=== PATIENT | female | born 1985 | race Caucasian/White ===

== ENCOUNTER → 2017-11-05 | Outpatient (REF) | payer OTHER ==
[2017-11-05 18:00] LABS: HEMATOCRIT 41.6 % (36.0-47.0); HEMOGLOBIN 14.5 g/dl (12.0-16.0); MEAN CORPUSCULAR HEMOGLOBIN 30.9 pg (27.0-33.0); MEAN CORPUSCULAR HGB CONC 34.9 g/dl (32.0-36.5); MEAN CORPUSCULAR VOLUME 88.5 fl (80.0-96.0); PLATELET COUNT, AUTOMATED 259 10^3/uL (150-450); RED CELL DISTRIBUTION WIDTH 13.5 % (11.5-14.5); WHITE BLOOD COUNT 6.2 10^3/uL (4.0-10.0)
[2017-11-05 18:24] LABS: HCG, SERUM QUANTITATIVE 73845 MIU/ML
[2017-11-06 10:44] LABS: RUBELLA IgG QUALITATIVE IMMUNE (IMMUNE)
[2017-11-06 11:02] LABS: HBsAg Prenatal NEGATIVE (NEGATIVE)
[2017-11-06 11:13] LABS: HEPATITIS C VIRUS ABY INDEX < 0.0 INDEX (<0.8)
[2017-11-06 11:27] LABS: HIV 1&2 SCREEN CENTAUR NEGATIVE (NEGATIVE)
== END ==
LOC: M LAB REF 17:04
DX: O36.80X0 Pregnancy with inconclusive fetal viability, not applicable or unspecified (principal)

== ENCOUNTER → 2018-04-28 | Outpatient (CLI) | payer OTHER ==
[2018-04-28 17:02] LABS: HEMATOCRIT 33.4 % (36.0-47.0); HEMOGLOBIN 11.5 g/dl (12.0-15.5); MEAN CORPUSCULAR HEMOGLOBIN 31.9 pg (27.0-33.0); MEAN CORPUSCULAR HGB CONC 34.4 g/dl (32.0-36.5); MEAN CORPUSCULAR VOLUME 92.8 fl (80.0-96.0); PLATELET COUNT, AUTOMATED 331 10^3/uL (150-450); RED CELL DISTRIBUTION WIDTH 13.2 % (11.5-14.5); WHITE BLOOD COUNT 11.2 10^3/uL (4.0-10.0)
[2018-04-28 17:36] LABS: GLUCOSE CHALLENGE TEST 1 HOUR 124 MG/DL (LESS THAN 140)
== END ==
LOC: M WUC 11:36
DX: Z34.82 Encounter for supervision of other normal pregnancy, second trimester (principal)
CPT/HCPCS: 82950

== ENCOUNTER → 2018-05-22 | Outpatient (REF) | payer OTHER | LOC: M LAB REF 16:54 | DX: Z34.83 Encounter for supervision of other normal pregnancy, third trimester (principal); Z36.85 Encounter for antenatal screening for Streptococcus B | CPT/HCPCS: 87186 ==

== ENCOUNTER 2018-06-12 13:08 | Inpatient (IN) | payer OTHER ==
[2018-06-12 19:31] LABS: HEMATOCRIT 39.6 % (36.0-47.0); HEMOGLOBIN 13.5 g/dl (12.0-15.5); MEAN CORPUSCULAR HGB CONC 34.1 g/dl (32.0-36.5); PLATELET COUNT, AUTOMATED 294 10^3/uL (150-450); RED BLOOD COUNT 4.35 10^6/uL (4.00-5.40); WHITE BLOOD COUNT 10.1 10^3/uL (4.0-10.0)
[2018-06-12] MEDS: PENICILLIN G POTASSIUM IV 5 MU in D5W MINI-BAG PLUS 100 ML IV (19:41)
[2018-06-12] MEDS ORDERED: OXYTOCIN 30 UNITS IN 0.9% NaCl 500ML IV BAG (J2590) As Ordered (20:18)
[2018-06-12] MEDS: LR 1,000 ML IV (20:28)
[2018-06-12] MEDS: OXYTOCIN DRIP 30 UNITS in APPROPRIATE DILUENT 1 EA IV (20:28)
[2018-06-12] MEDS: PENICILLIN G POTASSIUM IV 2.5 MU in APPROPRIATE DILUENT 1 EA IV (23:38)
[2018-06-13] MEDS: PENICILLIN G POTASSIUM IV 2.5 MU in APPROPRIATE DILUENT 1 EA IV ×2 (03:30→08:15)
[2018-06-13] MEDS: OXYTOCIN DRIP 30 UNITS in APPROPRIATE DILUENT 1 EA IV (09:37)
[2018-06-13] MEDS ORDERED: RHOGAM 300 MCG (1500 IU) INJ (J2790) IM (09:45)
[2018-06-13] MEDS ORDERED: METHYLERGONOVINE MALEATE 0.2 MG TAB PO (09:45)
[2018-06-13] MEDS ORDERED: MEASLES,MUMPS,RUBELLA VACCINE INJ (MMR-II) (90707) SC (09:45)
[2018-06-13] MEDS ORDERED: DOCUSATE SODIUM 100 MG CAP PO (09:45)
[2018-06-13] MEDS ORDERED: DIBUCAINE 1% OINTMENT 30GM TOP (09:45)
[2018-06-13] MEDS ORDERED: ACETAMINOPHEN 500 MG TAB PO (09:45)
[2018-06-13] MEDS: PRENATAL VITAMINS CHEWABLE TABLET PO (13:04)
[2018-06-13] MEDS: IBUPROFEN 800 MG TAB PO (18:18)
[2018-06-14] MEDS: PRENATAL VITAMINS CHEWABLE TABLET PO (10:10)
[2018-06-14] MEDS: INFLUENZA QUADRIVALENT PF VACCINE 0.5ML SYRINGE (90686) IM (10:11)
== END 2018-06-14 14:50 | disposition home or self-care (01) | DRG 560 ==
LOC: M LDO 13:08 → M OBS 06-13 11:00 → M LDI 18:12
PROVIDERS: Advanced Practice Midwife
PROC: 10E0XZZ Delivery of Products of Conception, External Approach (ICD-10-PCS; principal; 2018-06-13)
DX: O69.89X0 Labor and delivery complicated by other cord complications, not applicable or unspecified (principal); F17.200 Nicotine dependence, unspecified, uncomplicated; O99.820 Streptococcus B carrier state complicating pregnancy; Z37.0 Single live birth; Z3A.39 39 weeks gestation of pregnancy; O99.334 Smoking (tobacco) complicating childbirth

== ENCOUNTER → 2019-01-14 | Outpatient (REF) | payer OTHER ==
[~2019-01-14] MED LIST: COLA100C5 PO; IBUP-1114 PO; IBUP80TA PO; MAPA500T17 PO; MAPA500T2 PO; PRENTAB9 PO
[2019-01-14 19:26] LABS: HEMATOCRIT 42.3 % (36.0-47.0); HEMOGLOBIN 14.2 g/dl (12.0-15.5); MEAN CORPUSCULAR HEMOGLOBIN 29.7 pg (27.0-33.0); MEAN CORPUSCULAR HGB CONC 33.6 g/dl (32.0-36.5); MEAN CORPUSCULAR VOLUME 88.5 fl (80.0-96.0); PLATELET COUNT, AUTOMATED 322 10^3/uL (150-450); RED BLOOD COUNT 4.78 10^6/uL (4.00-5.40); WHITE BLOOD COUNT 7.8 10^3/uL (4.0-10.0)
[2019-01-14 20:50] LABS: HCG, SERUM QUANTITATIVE 19204 MIU/ML; HIV 1&2 SCREEN CENTAUR NEGATIVE (NEGATIVE)
[2019-01-16 10:32] LABS: RUBELLA IgG QUALITATIVE IMMUNE (IMMUNE)
[2019-01-16 11:00] LABS: HEPATITIS C VIRUS ABY INDEX < 0.0 INDEX (<0.8)
== END ==
LOC: M LAB REF 16:44
PROVIDERS: ATTEND Obstetrics & Gynecology
DX: Z32.01 Encounter for pregnancy test, result positive (principal); O36.80X0 Pregnancy with inconclusive fetal viability, not applicable or unspecified

== ENCOUNTER → 2019-06-08 | Outpatient (CLI) | payer OTHER ==
[2019-06-08 11:34] LABS: HEMATOCRIT 34.8 % (36.0-47.0); HEMOGLOBIN 12.1 g/dl (12.0-15.5); MEAN CORPUSCULAR HEMOGLOBIN 31.8 pg (27.0-33.0); MEAN CORPUSCULAR HGB CONC 34.8 g/dl (32.0-36.5); MEAN CORPUSCULAR VOLUME 91.6 fl (80.0-96.0); PLATELET COUNT, AUTOMATED 292 10^3/uL (150-450); WHITE BLOOD COUNT 9.3 10^3/uL (4.0-10.0)
== END ==
LOC: M LAB 09:54
PROVIDERS: ATTEND Obstetrics & Gynecology
DX: Z34.82 Encounter for supervision of other normal pregnancy, second trimester (principal); Z3A.00 Weeks of gestation of pregnancy not specified

== ENCOUNTER → 2019-08-19 | Outpatient (REF) | payer OTHER | LOC: M LAB REF 16:26 | PROVIDERS: ATTEND Obstetrics & Gynecology | DX: Z36.85 Encounter for antenatal screening for Streptococcus B (principal) ==

== ENCOUNTER 2019-09-02 20:01 | Inpatient (IN) | payer OTHER ==
[~2019-09-02] VITALS: Ht 157.5 cm; Wt 86.5 kg
[2019-09-02 20:33] VITALS: BP 126/78
[2019-09-02] MEDS ORDERED: LACTATED RINGER'S 1000 ML IV STA (21:28)
[2019-09-02] MEDS ORDERED: LR 1,000 ML IV SCH (21:28)
[2019-09-02 22:12] LABS: HEMATOCRIT 38.8 % (36.0-47.0); HEMOGLOBIN 12.3 g/dl (12.0-15.5); MEAN CORPUSCULAR HEMOGLOBIN 27.1 pg (27.0-33.0); MEAN CORPUSCULAR HGB CONC 31.7 g/dl (32.0-36.5); MEAN CORPUSCULAR VOLUME 85.5 fl (80.0-96.0); PLATELET COUNT, AUTOMATED 297 10^3/uL (150-450); RED BLOOD COUNT 4.54 10^6/uL (4.00-5.40); WHITE BLOOD COUNT 9.9 10^3/uL (4.0-10.0)
[2019-09-03] VITALS (10 sets, daily range): BP systolic 117–163; BP diastolic 65–78
[2019-09-03] MEDS ORDERED: OXYTOCIN 30 UNITS IN 0.9% NaCl 500ML IV BAG (J2590) As Ordered ONE (00:09)
[2019-09-03] MEDS ORDERED: OXYTOCIN DRIP 30 UNITS in IV 1 EA IV SCH ×2 (00:30→00:45)
[2019-09-03] MEDS ORDERED: DIBUCAINE 1% OINTMENT 30GM TOP PRN (00:45)
[2019-09-03] MEDS ORDERED: ACETAMINOPHEN 500 MG TAB PO PRN (00:45)
[2019-09-03] MEDS ORDERED: RHOGAM 300 MCG (1500 IU) INJ (J2790) IM SCH (00:45)
[2019-09-03] MEDS ORDERED: METHYLERGONOVINE MALEATE 0.2 MG TAB PO PRN (00:45)
[2019-09-03] MEDS ORDERED: IBUPROFEN 600 MG TAB PO PRN (00:45)
[2019-09-03] MEDS ORDERED: IBUPROFEN 800 MG TAB PO PRN (00:45)
[2019-09-03] MEDS ORDERED: ACETAMINOPHEN TAB 650MG DOSE (2X325MG) PO PRN (00:45)
[2019-09-03] MEDS ORDERED: MEASLES,MUMPS,RUBELLA VACCINE INJ (MMR-II) (90707) SC SCH (00:45)
[2019-09-03] MEDS ORDERED: DOCUSATE SODIUM 100 MG CAP PO PRN (00:45)
[2019-09-03 01:02] LABS: CORD GAS ABE V -1.3; CORD GAS HCO3 V 23.6 MEQ/L; CORD GAS PCO2 V 40.5 mmHg; CORD GAS PH V 7.384 UNITS; CORD GAS PO2 V 35.5 mmHg; CORD GAS TCO2 V 24.9 MEQ/L
[2019-09-03 01:03] LABS: CORD GAS ABE A -1.2; CORD GAS HCO3 A 26.7 MEQ/L; CORD GAS O2 SAT A 55.3 %; CORD GAS PCO2 A 56.6 mmHg; CORD GAS PH A 7.291 UNITS; CORD GAS PO2 A 23.6 mmHg; CORD GAS SBC A 22.3 MEQ/L; CORD GAS TCO2 A 28.4 MEQ/L
--- NOTE | 2019-09-03 07:48 | HPE ---
DATE OF ADMISSION: 09/02/2019 HISTORY OF PRESENT ILLNESS: Deepali is a 34-year-old female, 5, para 3-0-1-3, with an expected date of confinement (EDC) of 09/01/2019, estimated gestational age (EGA) 40 and 1/7 weeks gestation, who presented to labor and delivery with complaints of contractions every 4-5 minutes. Upon evaluation in labor and delivery, she was found to be in labor. At this point, a decision was made for admission. Her record was reviewed and essentially unremarkable. LABS: Blood type is B positive. Rubella immune. Hepatitis negative. HIV negative. GC and Chlamydia negative. One hour sugar testing was within normal limits. Her GBS is negative. PAST MEDICAL HISTORY: Significant for depression and anxiety. PAST SURGICAL HISTORY: Tonsillectomy. SOCIAL HISTORY: She is . Denies any complaints of alcohol or drug use. REVIEW OF SYSTEMS: Unremarkable. FAMILY HISTORY: Significant for diabetes, thyroid disease. MEDICATIONS: vitamin. ALLERGIES: No known drug allergies. PHYSICAL EXAMINATION: Normal appearing female in no acute distress. Abdomen gravid, soft, nontender, nondistended. Extremities: No clubbing, cyanosis or edema. The patient has a rash on the lower thigh. Vaginal Exam: 8 cm dilated, 100% effaced, with a bulging membrane, fetus at -2 station. Artificial rupture of membrane, clear fluid. Tracing reviewed, Category 1 tracing. Contractions every 4-7 minutes. ASSESSMENT: Intrauterine at 40 and 1/7 weeks gestation in active labor. PLAN: Admit to labor and delivery. Routine labs sent. Pain management discussed. Patient opts for no pain medications at this point. Will continue to monitor. Anticipate delivery.
[2019-09-03] MEDS ORDERED: ADACEL/BOOSTRIX VACCINE (DIPHTH/PERTUSS/ACELL/TETANUS)0.5ML SYR (90715) IM ONE (09:00)
--- NOTE | 2019-09-03 09:29 | DN ---
DATE OF DELIVERY: 09/03/2019 Deepali is a 34-year-old female, 5, para 3-0-1-3, who is admitted at 40 and 2/7 weeks gestation in active labor. After artificial rupture of membranes, she progressed to fully dilated. She then pushed and delivered a live male infant in right occiput anterior position over an intact perineum. 9 and 9. weight 6 pounds 13 ounces. Placenta delivered spontaneously intact. Three vessel cord. Perineum, vagina and cervix inspected. No lacerations noted. Estimated blood loss 300 mL. Both mother and baby in stable condition.
[2019-09-03] MEDS: PRENATAL VITAMINS CHEWABLE TABLET PO SCH (10:12)
[2019-09-04 06:00] VITALS: BP 121/71
[2019-09-04] MEDS: PRENATAL VITAMINS CHEWABLE TABLET PO SCH (09:00)
== END 2019-09-04 13:35 | disposition home or self-care (01) | DRG 560 ==
LOC: M LDO 20:01 → M LDI 21:21 → M OBS 09-03 02:41
PROVIDERS: ADMIT Obstetrics & Gynecology; ATTEND Obstetrics & Gynecology
PROC: 10E0XZZ Delivery of Products of Conception, External Approach (ICD-10-PCS; principal; 2019-09-03)
PROC: 10907ZC Drainage of Amniotic Fluid, Therapeutic from Products of Conception, Via Natural or Artificial Opening (ICD-10-PCS; 2019-09-03)
DX: O48.0 Post-term pregnancy (principal); O09.523 Supervision of elderly multigravida, third trimester; Z37.0 Single live birth; Z3A.40 40 weeks gestation of pregnancy

== ENCOUNTER 2022-03-03 19:43 | Emergency (ER) | payer OTHER ==
[~2022-03-03] VITALS: Ht 157.5 cm; Wt 97.7 kg
[2022-03-03] MEDS ORDERED: CETI10CH PO (20:08)
[2022-03-03] MEDS ORDERED: WELLTAB38 PO (20:08)
[2022-03-03] MEDS ORDERED: SING10TA32 PO (20:08)
[2022-03-03] MEDS ORDERED: MELO15TA28 PO (20:08)
[2022-03-03] MEDS ORDERED: TOPI50TA9 PO (20:08)
[2022-03-03] MEDS ORDERED: LIDOCAINE 2% JELLY 5ML TUBE TOP ONE (21:30)
[2022-03-03] MEDS ORDERED: ALOE1GEL2 EX (21:39)
[2022-03-03] MEDS ORDERED: IBUP-1022 PO (21:41)
[2022-03-03 21:55] VITALS: BP 118/69
== END 2022-03-03 21:56 | disposition home or self-care (01) ==
LOC: M ED 19:43 → EDBD 19:43 → M ED 21:56
DX: L55.9 Sunburn, unspecified (principal); F33.1 Major depressive disorder, recurrent, moderate; F17.200 Nicotine dependence, unspecified, uncomplicated; Z91.02 Food additives allergy status

== ENCOUNTER 2022-07-14 03:06 | Emergency (ER) | payer OTHER ==
[~2022-07-14] VITALS: Ht 157.5 cm; Wt 92.6 kg
[~2022-07-14 03:06] MED LIST changes: +ALOE1GEL2 EX; +CETI10CH PO; +IBUP-1022 PO; +MELO15TA28 PO; +SING10TA32 PO; +TOPI50TA9 PO; +WELLTAB38 PO
[2022-07-14 03:08] VITALS: BP 132/72
[2022-07-14] MEDS ORDERED: LIDOCAINE 5% (LIDODERM) PATCH TD ONE (06:20)
[2022-07-14] MEDS ORDERED: KETOROLAC 30 MG/ML 1ML VIAL IM ONE (07:00)
[2022-07-14] MEDS ORDERED: LIDO5DIS41 TOP (08:41)
== END 2022-07-14 09:03 | disposition home or self-care (01) ==
LOC: M ED 03:06
DX: S39.012A Strain of muscle, fascia and tendon of lower back, initial encounter (principal); M51.36 Other intervertebral disc degeneration, lumbar region; M48.061 Spinal stenosis, lumbar region without neurogenic claudication; F41.9 Anxiety disorder, unspecified; F32.A Depression, unspecified; F17.200 Nicotine dependence, unspecified, uncomplicated; Z91.018 Allergy to other foods; Z79.899 Other long term (current) drug therapy; Z79.51 Long term (current) use of inhaled steroids
CPT/HCPCS: 72110; 84702; 96372; 99282; J1885